=== PATIENT | male | born 1965 | race Caucasian/White ===

== ENCOUNTER 2017-04-18 02:38 | Emergency (ER) | payer OTHER ==
[2017-04-18 04:21] VITALS: BP 151/109
== END 2017-04-18 04:21 | disposition home or self-care (01) ==
LOC: ED 02:38
DX: I10 Essential (primary) hypertension (principal); G89.29 Other chronic pain; M54.5 Low back pain; Z98.890 Other specified postprocedural states

== ENCOUNTER 2017-06-25 00:52 | Emergency (ER) | payer OTHER ==
[~2017-06-25] VITALS: Ht 177.8 cm; Wt 90.7 kg
[2017-06-25 01:01] VITALS: BP 161/93; Ht 177.8 cm; Wt 90.7 kg
== END 2017-06-25 02:10 | disposition left against medical advice (07) ==
LOC: ED 00:52
DX: Z53.21 Procedure and treatment not carried out due to patient leaving prior to being seen by health care provider (principal)

== ENCOUNTER 2018-06-24 01:33 | Emergency (ER) | payer OTHER ==
[~2018-06-24] VITALS: Ht 160 cm; Wt 88.0 kg
[2018-06-24 01:39] VITALS: Ht 160 cm; Wt 88.0 kg
[2018-06-24 05:49] VITALS: BP 137/64
== END 2018-06-24 05:40 | disposition home or self-care (01) ==
LOC: ED 01:33
DX: M54.5 Low back pain (principal); N20.1 Calculus of ureter; I10 Essential (primary) hypertension
CPT/HCPCS: J1885; J2270

== ENCOUNTER 2019-05-01 19:00 | Emergency (ER) | payer OTHER ==
[~2019-05-01] VITALS: Ht 167.6 cm; Wt 90.3 kg
[2019-05-01 19:30] VITALS: Ht 167.6 cm; Wt 90.3 kg
[2019-05-01 20:40] LABS: BASOPHIL % 0.7 % (0-2); PLATELET COUNT 295 x10^3mcL (130-400); RED CELL DISTRIBUTION WIDTH 13.1 % (11.5-14.5)
[2019-05-01 20:45] LABS: CARBON DIOXIDE 30.9 mmol/L (21-32); CHLORIDE SERUM 106 mmol/L (98-107); CREATININE SERUM 0.9 mg/dL (0.7-1.3); GFR1 > 60 mL/min; GLUCOSE SERUM 93 mg/dL (74-106); POTASSIUM SERUM 3.4 mmol/L (3.5-5.1); SODIUM SERUM 145 mmol/L (136-145)
[2019-05-01 20:54] LABS: ALKALINE PHOSPHATASE 140 U/L (46-116); ALT/SGPT 40 U/L (16-63); AST/SGOT 21 U/L (15-37); TOTAL PROTEIN, SERUM 7.9 g/dL (6.4-8.2)
[2019-05-02 02:29] VITALS: BP 131/76
== END 2019-05-02 02:29 | disposition home or self-care (01) ==
LOC: ED 19:00
PROVIDERS: Emergency Medicine
DX: I16.0 Hypertensive urgency (principal); R07.89 Other chest pain
CPT/HCPCS: J0360

== ENCOUNTER 2019-12-19 00:03 | Emergency (ER) | payer OTHER ==
[~2019-12-19] VITALS: Ht 162.6 cm; Wt 92.3 kg
[2019-12-19 00:10] VITALS: Ht 162.6 cm; Wt 92.3 kg
[2019-12-19 03:17] VITALS: BP 111/61
== END 2019-12-19 03:17 | disposition home or self-care (01) ==
LOC: ED 00:03
DX: M54.5 Low back pain (principal); M62.838 Other muscle spasm; I10 Essential (primary) hypertension; G89.29 Other chronic pain
CPT/HCPCS: 72072; J1885

== ENCOUNTER 2020-05-04 23:13 | Emergency (ER) | payer OTHER, SELFPAY ==
[~2020-05-04] VITALS: Ht 167.6 cm; Wt 90.7 kg
[2020-05-04 23:38] VITALS: BP 177/93; Ht 167.6 cm; Wt 90.7 kg
== END 2020-05-05 00:49 | disposition home or self-care (01) ==
LOC: ED 23:13
DX: J02.9 Acute pharyngitis, unspecified (principal); I10 Essential (primary) hypertension; G89.29 Other chronic pain; M54.9 Dorsalgia, unspecified

== ENCOUNTER 2020-05-07 01:00 | Emergency (ER) | payer OTHER ==
[~2020-05-07] VITALS: Ht 162.6 cm; Wt 87.1 kg
[2020-05-07 01:07] VITALS: Ht 162.6 cm; Wt 87.1 kg
[2020-05-07 03:40] VITALS: BP 157/90
== END 2020-05-07 03:40 | disposition home or self-care (01) ==
LOC: ED 01:00
DX: M54.9 Dorsalgia, unspecified (principal); G89.29 Other chronic pain; I10 Essential (primary) hypertension
CPT/HCPCS: 72072; J1885